=== PATIENT | female | born 1980 | race Caucasian/White ===

== ENCOUNTER 2017-07-28 14:02 | Emergency (ER) | payer MEDICAID ==
[~2017-07-28] VITALS: Ht 160 cm; Wt 76.7 kg
[2017-07-28 14:06] VITALS: Ht 160 cm; Wt 76.7 kg
[2017-07-28 15:20] VITALS: BP 134/85
== END 2017-07-28 15:20 | disposition home or self-care (01) ==
LOC: ED 14:02
DX: S51.012A Laceration without foreign body of left elbow, initial encounter (principal); W54.0XXA Bitten by dog, initial encounter; Y93.89 Activity, other specified; Y92.89 Other specified places as the place of occurrence of the external cause; Y99.8 Other external cause status
CPT/HCPCS: 90715; J2001